=== PATIENT | male | born 1950 | race Caucasian/White ===

== ENCOUNTER → 2016-03-08 | Outpatient (CLI) | payer OTHER ==
[2016-03-08 14:18] LABS: Follicle Stimulating Hormone 7.7 mIU/mL (1.6-9.7)
== END | disposition home or self-care (01) ==
LOC: LABWHC1 13:10
PROVIDERS: ATTEND Internal Medicine Endocrinology, Diabetes & Metabolism
DX: R68.82 Decreased libido (principal); R53.83 Other fatigue
CPT/HCPCS: 36415; 83001; 83002; 84402; 84403

== ENCOUNTER → 2016-08-06 | Outpatient (CLI) | payer OTHER ==
--- NOTE | 2016-08-06 15:53 | US ---
EXAMINATION TYPE: US venous doppler duplex LE BI DATE OF EXAM: 08/06/2016 10:23 AM COMPARISON: NONE CLINICAL HISTORY: R22.41, R22.42 SWELLING MANDO LEGS. pt had back surgery in June; left leg swelling, no prev dvt SIDE PERFORMED: bilateral TECHNIQUE: The lower extremity deep venous system is examined utilizing real time linear array sonog gabi with graded compression, doppler sonography and color-flow sonography. VESSELS IMAGED: External Iliac Vein (EIV) Common Femoral Vein Deep Femoral Vein Femoral Vein Popliteal Vein Proximal Calf Veins Right Leg: neg for RLE dvt Left Leg: neg for LLE dvt IMPRESSION: 1. Bilateral lower extremities negative for deep venous thrombosis.
== END | disposition home or self-care (01) ==
LOC: RADUSWWP 10:00
PROVIDERS: ATTEND Neurological Surgery
DX: R22.43 Localized swelling, mass and lump, lower limb, bilateral (principal)
CPT/HCPCS: 93970

== ENCOUNTER → 2016-11-29 | Outpatient (CLI) | payer OTHER ==
[2016-11-29 11:12] LABS: CH 31.8; CHCM 33.6; HDW 2.49; HGB 15.5 gm/dL (13.0-17.5); MCH 32.7 pg (25.0-35.0); MCHC 34.5 g/dL (31.0-37.0); MCV 94.9 fL (80.0-100.0); RBC 4.75 m/uL (4.30-5.90); RDW 14.1 % (11.5-15.5); WBC 7.7 k/uL (3.8-10.6)
[2016-11-29 11:23] LABS: Anion Gap 10 mmol/L; Blood Urea Nitrogen 23 mg/dL (9-20); Carbon Dioxide 27 mmol/L (22-30); Chloride 103 mmol/L (98-107); Non-African American GFR(MDRD) >60 (>60 ml/min/1.73 sqM); Potassium 4.5 mmol/L (3.5-5.1); Sodium 140 mmol/L (137-145)
== END | disposition home or self-care (01) ==
LOC: LABWHC1 10:53
PROVIDERS: ATTEND Internal Medicine Cardiovascular Disease
DX: Z01.812 Encounter for preprocedural laboratory examination (principal); I47.1 Supraventricular tachycardia
CPT/HCPCS: 80051; 82565; 84520; 85027

== ENCOUNTER → 2017-01-23 | Outpatient (CLI) | payer OTHER ==
--- NOTE | 2017-01-23 12:11 | PN ---
PROGRESS NOTE DATE OF SERVICE: 01/23/2017 This 66-year-old gentleman has been followed in the sleep center for treatment of obstructive sleep apnea-hypopnea syndrome. Previously, I saw patient about 2 years ago. At that time, he was recommended to use CPAP equipment with a pressure of cm of water. On CPAP, his respiration was on control with that pressure. The patient does not use CPAP equipment at the present time, but he continued to use his oral appliances. Without oral appliances, he has loud snoring, but with oral appliances according to his he does not snore. With oral appliances, patient wakes up, up to 2 times with nocturia. By cardiac monitoring recently patient was documented with some episodes of V fib. Cardiac cath is normal. Also had some PVCs documented by cardiac evaluation. Patient had back surgery and surgery of the nose for nasal septum deviation since I saw him last time. After nasal surgery, he breathes better. On the previous sleep study, it was documented is significant amount of periodic limb movements during titration. The patient continued to have periodic limb movements during the night according to his family. He is twitching his legs. He was recommended to use dopamine agonists in the previous visit, but patient did not proceed with that. He has difficulties to initiate sleep at the beginning of the night. He watches TV in bedroom. [place] Sleepiness Scale today is 7. MEDICATIONS: Atorvastatin, omeprazole, levothyroxine, irbesartan, Xanax, aspirin, iron supplement, fish oil. PHYSICAL EXAMINATION: During physical exam, patient in no distress. VITAL SIGNS: BP 138/80, HR 80, RR 16, height 5 feet and 6 inches, weight 212, BMI 34.2, temperature 98.7, oxygen saturation on room air 93%. HEENT: PERRLA, EOMI, evaluation of oropharynx showed moderately low position of soft palate. NECK: Supple, no JVD. Thyroid is not palpable. LUNGS: Clear to percussion and to auscultation. Good air exchange. No wheezing or rhonchi. HEART: S1, S2, extra systoles. ABDOMEN: Obese. EXTREMITIES: No clubbing or cyanosis. 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 Cranial nerves 2 to 7 intact. There is no fasciculation or atrophy. noted. No focal deficits observed. IMPRESSION: 1. Obstructive sleep apnea-hypopnea syndrome. The patient continued to use oral appliances, but wakes up from sleep 2 times with nocturia. 2. Recently documented episodes of cardiac arrhythmia including ventricular fibrillation. 3. History of premature ventricular contractions. Some extrasystoles during auscultation today. 4. Hypertension. 5. Significant periodic limb movements during the last titration. The patient continued to have periodic limb movements during the night according to family. 6. History of nasal septal deviation, status post nasal surgery recently. 7. History of back problems, status post back fusion recently. 8. Hyperlipidemia. PLAN: 1. Polysomnography for re-evaluation of patient's breathing at the present time. He increased his weight on 10 pounds since previous visit and to check for periodic limb movements. 2. CPAP treatment possibly may need titration because of changes of the weight and status post new nasal surgery in case if oral appliances do not fix his breathing. 3. Losing weight. 4. Sleep hygiene with regular time in bed for 7-1/2 hours. 5. Treatment of insomnia should include stimulus control, worry time, paradoxical intention, no watching clocks, preferably not to use antihistamines because that might increase QT distance and subsequently increase risk for cardiac arrhythmia. 6. No driving if feeling any sleepiness. Thank you very much for allowing me to participate in management of your patient. Sincerely, Bill Barajas MD, PhD, FAASM Diplomat of [employer] Warm In Worker of [facility] [place] MMODL / JARRETN: [id number] /
== END | disposition home or self-care (01) ==
LOC: SLEEP 10:36
PROVIDERS: ATTEND Internal Medicine
DX: G47.33 Obstructive sleep apnea (adult) (pediatric) (principal); I10 Essential (primary) hypertension; E78.5 Hyperlipidemia, unspecified; G47.61 Periodic limb movement disorder; I49.9 Cardiac arrhythmia, unspecified; I49.01 Ventricular fibrillation; Z86.79 Personal history of other diseases of the circulatory system; Z79.899 Other long term (current) drug therapy; Z79.82 Long term (current) use of aspirin; Z98.1 Arthrodesis status; Z98.890 Other specified postprocedural states

== ENCOUNTER → 2017-05-29 | Outpatient (CLI) | payer OTHER ==
--- NOTE | 2017-05-29 17:34 | SFUN ---
SLEEP STUDY FOLLOW UP NOTE DATE OF SERVICE: 05/29/2017 66-year-old gentleman who has been followed in Sleep Center for treatment of obstructive sleep apnea-hypopnea syndrome. Recently patient had diagnostic sleep study and CPAP titration and I discussed with him results of sleep study in details. He has moderate obstructive sleep apnea-hypopnea syndrome with apnea-hypopnea index 15.8, in REM sleep, severely increased to 36.7. Subsequently patient received his CPAP unit and today he came first time with his new CPAP unit. I checked his CPAP machine. CPAP pressure is 10 cm of water. Usage is 100% of the night, but 18/30 nights more than 4 hours. Leak is in normal range 14 L/minute. Apnea- hypopnea index is only 0.8, which is perfect. Sometimes patient has problem with falling asleep. Also reviewed results of his sleep study and diagnostic sleep study showed 128.1 periodic limb movements per hour with 8.4 microarousals per hour. According to patient, sometimes he has more leg movements, sometimes less. MEDICATIONS: Atorvastatin, omeprazole, levothyroxine, Xanax, , Benadryl, aspirin, some vitamin supplements. PHYSICAL EXAM: GENERAL Patient in no distress. VITAL SIGNS BP 117/81, HR 80, RR 16, weight 211.0, temperature 97.8, oxygen saturation at room air 94%. HEENT PERRLA, EOMI, evaluation of oropharynx showed extremely low position of soft palate. NECK Supple, no JVD. Thyroid is not palpable. LUNGS Clear to percussion and to auscultation. Good air exchange. No wheezing or rhonchi. HEART Extrasystoles by auscultation with compensatory pauses. ABDOMEN Slightly obese. Soft and nontender. Bowel sounds are present. No organomegaly appreciated. EXTREMITIES No clubbing or cyanosis. 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 Cranial nerves 2 to 7 intact. There is no fasciculation or atrophy. noted. No focal deficits observed. IMPRESSION: 1. Apnea-hypopnea syndrome on full control with CPAP at 10 cm of water. The patient benefitting from treatment. 2. Obesity. 3. Extremely severe periodic limb movements. 4. Multiple PVCs during the sleep test. 5. Hypertension. 6. Nasal septum deviation. 7. Status post surgery for the back fusion recently. 8. Hyperlipidemia. PLAN: 1. Continue treatment with CPAP every night for the whole night. 2. I will consider to start the patient on dopaminergic agonist for preventing of periodic limb movements and possibly restless legs. 3. Psychological techniques for treatment to difficulties to initiate sleep should include stimulus control, paradoxical intention, worry time, no watching clock in bedroom. 4. No driving if feeling sleepiness. Thank you very much for allowing me to participate in management of your patient. Sincerely, Bill Barajas MD, PhD, FAASM Diplomat of [employer] Topographical Drafter of [facility] [place] MMODL / JARRETN: [id number] /
== END | disposition home or self-care (01) ==
LOC: SLEEP 16:03
PROVIDERS: ATTEND Internal Medicine
DX: G47.33 Obstructive sleep apnea (adult) (pediatric) (principal); E66.9 Obesity, unspecified; G47.61 Periodic limb movement disorder; I49.3 Ventricular premature depolarization; I10 Essential (primary) hypertension; J34.2 Deviated nasal septum; E78.5 Hyperlipidemia, unspecified; Z98.1 Arthrodesis status; Z79.899 Other long term (current) drug therapy; Z79.82 Long term (current) use of aspirin

== ENCOUNTER → 2017-12-04 | Outpatient (CLI) | payer MEDICARE, BC ==
--- NOTE | 2017-12-04 21:26 | SFUN ---
SLEEP CENTER FOLLOW UP NOTE DATE OF SERVICE: 12/04/2017 67-year-old gentleman has been followed in the Sleep Center for treatment of obstructive sleep apnea-hypopnea syndrome. The patient was started on treatment with CPAP at 8 months ago and at that time, he was able to use machine without problem practically every night and feels better with that. After that he developed some problems with sinus infection and he was not able to use machine for some period of time. Presently, his mask is cold and he needs to get new supplies. His [place] Sleepiness Scale today 5. Because of history of significant periodic limb movements. He was treated with pramipexole and he felt better with pramipexole. Occasionally he is taking it now. MEDICATIONS: Atorvastatin, omeprazole, levothyroxine, Xanax, Benadryl. PHYSICAL EXAM: GENERAL Patient in no distress. VITAL SIGNS BP 138/83, HR 78, RR 18, weight 203.8, temp 97.8, oxygen saturation at room air 97%. HEENT PERRLA, EOMI, evaluation of oropharynx showed moderately low position of soft palate. NECK Supple, no JVD. Thyroid is not palpable. LUNGS Clear to percussion and to auscultation. Good air exchange. No wheezing or rhonchi. HEART S1, S2 regular. No murmurs, gallops, or rubs. ABDOMEN Soft and nontender. Bowel sounds are present. No organomegaly appreciated. EXTREMITIES No clubbing or cyanosis. 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 Cranial nerves 2 to 7 intact. There is no fasciculation or atrophy. noted. No focal deficits observed. IMPRESSION: 1. Obstructive sleep apnea-hypopnea syndrome. The patient benefitting from CPAP treatment. 2. Hypertension. 3. Acid reflux. 4. Hypothyroidism. 5. Hyperlipidemia. 6. Anxiety. 7. History of allergy. 8. History of sinusitis. 9. Periodic limb movement syndrome. PLAN: 1. Prescription for all necessary CPAP supplies including mask, tube, filters 2. Patient will continue to use CPAP equipment every night for the whole night. 2. We will maintain prescription for Mirapex after he will be finished, patient has recently refilled his medication. 3. No driving if feeling sleepiness. 4. Watching weight. Thank you very much for allowing me to participate in management of your patient. Sincerely, Bill Barajas MD, PhD, FAASM Diplomat of [employer] Special Events Driver of [facility] [place] MMODL / JARRETN: [id number] /
== END | disposition home or self-care (01) ==
LOC: SLEEP 16:03
PROVIDERS: ATTEND Internal Medicine
DX: G47.33 Obstructive sleep apnea (adult) (pediatric) (principal); G47.61 Periodic limb movement disorder; I10 Essential (primary) hypertension; K21.9 Gastro-esophageal reflux disease without esophagitis; E03.9 Hypothyroidism, unspecified; E78.5 Hyperlipidemia, unspecified; F41.9 Anxiety disorder, unspecified; Z87.09 Personal history of other diseases of the respiratory system; Z91.09 Other allergy status, other than to drugs and biological substances; Z99.89 Dependence on other enabling machines and devices; Z79.899 Other long term (current) drug therapy

== ENCOUNTER → 2022-01-25 | Outpatient (CLI) | payer MEDICARE, BC ==
--- NOTE | 2022-01-25 13:56 | CT ---
EXAMINATION TYPE: CT lumbar spine wo con DATE OF EXAM: 01/25/2022 12:03 PM COMPARISON: None HISTORY: low back pain CT DLP: 1324.7 mGycm Automated exposure control for dose reduction was used. Technique: Unenhanced CT of the lumbar spine was performed. Bone and soft tissue window settings are submitted as well as coronal and sagittal reconstructions. Findings: There are postsurgical changes of wide laminectomy with interdisc and posterior metallic fusion at th e L5-S1 level. There is a grade 1 anterolisthesis of L5 and S1 partial fusion of the L5-S1 disc space . The lumbar vertebral segments are normal in height. The graft there is moderate degenerative disease at the T12/L1 level where there is moderate disc space narrowing and spondylosis. The L1-2, L2-3, L3-4 and L4-5 disc spaces are well-maintained in height.. The exam is limited for disc herniation but there is abnormal soft tissue density extending posterior ly from the L4-5 disc which possibly represents a large disc herniation resulting in significant sreekanth l stenosis. A post myelogram CT or MRI of the lumbar spine is recommended for further evaluation The facet joints from L1 through L5 are mildly degenerated. The paraspinal soft tissues are unremarkable. IMPRESSION: 1. Postsurgical changes of wide laminectomy , interdisc and posterior metallic fusion at the L5-S1 l evel. 2. Cannot exclude significant posterior disc herniation with spinal stenosis at the L4-5 level as tye cribed above. Post myelogram CT or MRI lumbar spine is recommended for further evaluation. 3. Moderate degenerative disease at the T12/L1 level.
--- NOTE | 2022-01-25 15:18 | XR ---
EXAMINATION TYPE: XR lumbar spine with bend/flex, 7 views DATE OF EXAM: 01/25/2022 Comparison: None Clinical History: 71-year-old male M48.062 Spinal stenosis Findings: Surgical changes L4-L5 posterior and interbody lumbar fusion with fixed grade 1 anterolisthesis. Ther e is facet arthropathy mid to lower lumbar spine. There is trace grade 1 anterolisthesis at L4-L5 whi ch minimally accentuates on flexion. There is grade 1 retrolisthesis at T12-L1 and trace at L1-L2 wit hout any dynamic subluxation. The L4-L5 anterolisthesis does not correct on extension. Vertebral body heights are preserved. Moderate degenerative disc disease suggested in the lower thoracic spine. Impression: 1. Status post right-sided L5-S1 posterior and interbody fusion with fixed anterolisthesis here. 2. Trace grade 1 anterolisthesis at L4-L5 minimally accentuate on flexion. No correction upon extensi on. 3. Additional fixed grade 1 retrolisthesis at T12-L1 and L1-L2. 4. Moderate degenerative disc disease lower thoracic spine.
== END | disposition home or self-care (01) ==
LOC: RADCTMAIN 11:27
PROVIDERS: ATTEND Neurological Surgery
DX: M48.062 Spinal stenosis, lumbar region with neurogenic claudication (principal); M47.816 Spondylosis without myelopathy or radiculopathy, lumbar region
CPT/HCPCS: 72114; 72131

== ENCOUNTER → 2022-01-30 | Outpatient (CLI) | payer MEDICARE, BC ==
--- NOTE | 2022-01-30 22:35 | MR ---
EXAMINATION TYPE: MR lumbar spine wo con DATE OF EXAM: 01/30/2022 COMPARISON: CT lumbar spine 5 days earlier. HISTORY: Low back pain that radiates down left leg, history of surgery. Spinal stenosis. TECHNIQUE: Multiplanar, multisequence imaging of the lumbar spine is performed without IV contrast. FINDINGS: Sagittal images of the lumbar spine show vertebral body height to remain satisfactory. Juliet fact from right-sided posterior interpedicular rods and screws L5-S1 level is redemonstrated. Artifac t from artificial disc material is redemonstrated. Stable slight grade 1 anterolisthesis L5 on S1. Mu ltilevel disc desiccation. Mild to moderate disc space narrowing and anterior spurring with heterogen eous Modic type II endplate changes involving the anterior T12-L1 level. The conus medullaris is nor mal in position and signal ending superior L1 level. Axial images at T12-L1 level show [id number] broad-based disc bulge effacing the anterior theca l sac. Patent bilateral neural foramina. Axial images at L1-L2 level appears within normal limits. Axial images at L2-L3 level show mild facet arthropathy bilaterally. Axial images at L3-L4 level appear within normal limits. Axial images at L4-L5 level shows mild to moderate broad-based disc bulge with focal mild/moderate ri ght paracentral disc protrusion effacing anterior thecal sac and background mild broad disc bulge. Th ere is mild/moderate facet arthropathy bilaterally. There is right-sided artifact. There is moderate to severe right and severe left-sided neural foraminal narrowing. Encroachment on bilateral L4 nerves especially on the left sagittal image 6 and axial image 16 is noted. Axial images at L5-S1 level shows spondylolisthesis. Spinal canal is preserved. There is severe bilat eral neural foraminal narrowing. Loss of surrounding fat plane noted bilaterally. Bilateral encroachm ent suspected. Small central simple parapelvic cysts in both kidneys are noted. IMPRESSION: Postsurgical change lumbosacral junction redemonstrated. There is [id number] bila teral neural foraminal narrowing lower lumbar levels and suspected effacement of the exiting left L4 and L5 nerves at lower lumbar levels as detailed above.
== END | disposition home or self-care (01) ==
LOC: RADMRIMAIN 16:35
PROVIDERS: ATTEND Neurological Surgery
DX: M48.062 Spinal stenosis, lumbar region with neurogenic claudication (principal)
CPT/HCPCS: 72148

== ENCOUNTER → 2024-06-07 | Outpatient (CLI) | payer MEDICARE, BC ==
[2024-06-07 19:20] LABS: ALT 158 U/L (10-49); AST 49 U/L (14-35); Alkaline Phosphatase 138 U/L (41-126)
== END | disposition home or self-care (01) ==
LOC: LABWHC1 13:50
PROVIDERS: ATTEND Nurse Practitioner Adult Health
DX: R74.8 Abnormal levels of other serum enzymes (principal)
CPT/HCPCS: 36415; 84075; 84450; 84460

== ENCOUNTER 2024-08-19 19:37 | Emergency (ER) | payer MEDICARE, BC ==
--- NOTE | 2024-08-19 20:27 | ED ---
Abdominal Pain HPI - General Stated Complaint: Weakness/Abn Labs Time Seen by Provider: 08/19/24 19:54 Source: patient, RN notes reviewed Mode of arrival: ambulatory Limitations: no limitations - History of Present Illness Initial Comments: This is a 73-year-old male with history including GERD and hypertension presenting for RUQ pain (04/05) since Friday. Patient endorses seeing an K[facility] at his PCP appointment yesterday where it was noted his LFTs were elevated and was scheduled for an ultrasound tomorrow. Patient states he still has his gallbladder. Endorses occasional EtOH use. Endorses use of ibuprofen with some relief and T3 with no relief. Denies use of any OTC or prescription medication today. Denies fever, chills, chest pain, dyspnea, N/V/D. MD Complaint: abdominal pain Onset/Timin -: days(s) Location: RUQ Radiation: none Migration to: no migration Severity scale (1-10): 2 Consistency: intermittent Treatments Prior to Arrival: NSAIDs, prescription analgesics - Related Data Home Medications Medication Instructions Recorded Confirmed Aspirin [Adult Low Dose Aspirin EC] 81 mg PO DAILY 11/29/16 12/05/16 Atorvastatin [Lipitor] 20 mg PO HS 11/29/16 12/05/16 Irbesartan 300 mg PO DAILY 11/29/16 12/05/16 Levothyroxine Sodium 88 mcg PO DAILY 11/29/16 12/05/16 Multivitamin [Men's Multi-Vitamin] 1 each PO DAILY 11/29/16 12/05/16 Regan-3 Fatty Acids/Fish Oil [Fish 1 each PO DAILY 11/29/16 12/05/16 Oil 1,000 mg Softgel] Omeprazole [PriLOSEC] 20 mg PO AC-BID 11/29/16 12/05/16 Ibuprofen [Ibuprofen Ib] 200 mg PO TID PRN 12/05/16 12/05/16 Allergies Allergy/AdvReac Type Severity Reaction Status Date / Time No Known Allergies Allergy Verified 08/19/24 20:46 Review of Systems ROS Statement: Those systems with pertinent positive or pertinent negative responses have been documented in the HPI. ROS Other: All systems not noted in ROS Statement are negative. Past Medical History Past Medical History: GERD/Reflux, Hypertension, Osteoarthritis (OA), Thyroid Disorder Additional Past Medical History / Comment(s): see Dr Gundlaplli's H&P; L foot drop & numbness r/t back surgery History of Any Multi-Drug Resistant Organisms: None Reported Past Surgical History: Back Surgery, Orthopedic Surgery, Tonsillectomy Additional Past Surgical History / Comment(s): left finger; back fusion Past Anesthesia/Blood Transfusion Reactions: No Reported Reaction Past Psychological History: No Psychological Hx Reported Past Alcohol Use History: Occasional Past Drug Use History: Marijuana Additional Drug Use History / Comment(s): socially - Past Family History Mother Family Medical History: No Reported History General Exam General appearance: alert, in no apparent distress Head exam: Present: atraumatic, normocephalic, normal inspection Eye exam: Present: normal appearance, PERRL, EOMI, scleral icterus (Mild scleral icterus). Absent: conjunctival injection, periorbital swelling ENT exam: Present: mucous membranes dry Neck exam: Present: normal inspection. Absent: tenderness, meningismus, lymphadenopathy Respiratory exam: Present: normal lung sounds bilaterally. Absent: respiratory distress, wheezes, rales, rhonchi, stridor, accessory muscle use, decreased breath sounds, prolonged expiratory Cardiovascular Exam: Present: regular rate, normal rhythm, normal heart sounds. Absent: systolic murmur, diastolic murmur, rubs, gallop, clicks GI/Abdominal exam: Present: soft, tenderness (Positive RUQ TTP without guarding. Negative Westbrook sign), diminished bowel sounds, hypoactive bowel sounds. Absent: distended, guarding, rebound, rigid Extremities exam: Present: normal inspection, full ROM, normal capillary refill. Absent: tenderness, pedal edema, joint swelling, calf tenderness Back exam: Present: normal inspection Neurological exam: Present: alert, oriented X3, CN II-XII intact Psychiatric exam: Present: normal affect, normal mood Skin exam: Present: warm, dry, intact. Absent: normal color (Mild jaundice noted), rash Course Vital Signs 08/19/24 20:42 Temperature 98.2 F Pulse Rate 74 Respiratory 18 Rate Blood Pressure 110/71 O2 Sat by Pulse 96 Oximetry Medical Decision Making - Medical Decision Making Was pt. sent in by a medical professional or institution (, PA, ANAESTHETIC TECHNICIAN, urgent care, hospital, or half-way...) When possible be specific @ -No Did you speak to anyone other than the patient for history (EMS, parent, family, police, friend...)? What history was obtained from this source @ -No Did you review nursing and triage notes (agree or disagree)? Why? @ -I reviewed and agree with nursing and triage notes Were old charts reviewed (outside hosp., previous admission, EMS record, old EKG, old radiological studies, urgent care reports/EKG's, half-way records)? Report findings @ -No old charts were reviewed Differential Diagnosis (chest pain, altered mental status, abdominal pain women, abdominal pain men, vaginal bleeding, weakness, fever, dyspnea, syncope, headache, dizziness, GI bleed, back pain, seizure, CVA, palpatations, mental health, musculoskeletal)? @ -Differential Abdominal Pain Men: Appendicitis, cholecystitis, diverticulosis, ischemic bowel, pancreatitis, hepatitis, UTI, gastroenteritis, AAA, incarcerated hernia, bowel obstruction, constipation, inflammatory bowel, hepatitis, peptic ulcer disease, splenic infarction, perforated viscus, testicular torsion, this is not meant to be an all-inclusive list EKG interpreted by me (3pts min.). @ -Not done X-rays interpreted by me (1pt min.). @ -None done CT interpreted by me (1pt min.). @ -None done U/S interpreted by me (1pt. min.). @ -Gallbladder ultrasound shows multiple gallstones within the gallbladder with no wall thickening or pericholecystic fluid. Common CBD raises concern for possible choledocholithiasis. What testing was considered but not performed or refused? (CT, X-rays, U/S, labs)? Why? @ -None What meds were considered but not given or refused? Why? @ -None Did you discuss the management of the patient with other professionals ( professionals i.e. , PA, ANAESTHETIC TECHNICIAN, lab, RT, psych nurse, clinical social worker, coat operator, teacher, command and control officer, transplant case manager)? Give summary @ -Spoke to Dr. Gatica who advised she will not be available tomorrow to address patient and advised to contact [facility]. Was smoking cessation discussed for >3mins.? @ -No Was critical care preformed (if so, how long)? @ -No Were there social determinants of health that impacted care today? How? (Homelessness, low income, unemployed, alcoholism, drug addiction, transportation, low edu. Level, literacy, decrease access to med. care, prison, rehab)? @ -No Was there de-escalation of care discussed even if they declined (Discuss DNR or withdrawal of care, Hospice)? DNR status @ -No What co-morbidities impacted this encounter? (DM, HTN, Smoking, COPD, CAD, Cancer, CVA, ARF, Chemo, Hep., AIDS, mental health diagnosis, sleep apnea, morbid obesity)? @ -None Was patient admitted / discharged? Hospital course, mention meds given and route, prescriptions, significant lab abnormalities, going to OR and other pertinent info. @ -Lab work notable for elevated LFTs including total bilirubin 7.2, conjugated 3.1, unconjugated 1.4, delta 2.7. AST 225, ALT 317, alkaline phosphatase 380 and lipase 558. UA positive for glucose with bilirubin. Gallbladder ultrasound shows multiple gallstones within the gallbladder with no wall thickening or pericholecystic fluid. Common CBD raises concern for possible choledocholithiasis. With elevated LFTs including bilirubin and dilated CBD, Dr. Gatica contacted who advised contact [facility] for GI consult. Patient provided IV normal saline and IVPB Zosyn. Patient accepted by Dr. Parmjit Carson at [facility] and transported by EMS. Discussed patient with Dr. Fried. Undiagnosed new problem with uncertain prognosis? @ -No Drug Therapy requiring intensive monitoring for toxicity (Heparin, Nitro, Insulin, Cardizem)? @ -No Were any procedures done? @ -No Diagnosis/symptom? @ -Choledocholithiasis Acute, or Chronic, or Acute on Chronic? @ -Acute Uncomplicated (without systemic symptoms) or Complicated (systemic symptoms)? @ -Complicated Side effects of treatment? @ -No Exacerbation, Progression, or Severe Exacerbation? @ -No Poses a threat to life or bodily function? How? (Chest pain, [place], [place], pneumonia, PE, COPD, DKA, ARF, appy, cholecystitis, CVA, Diverticulitis, Homicidal, Suicidal, threat to staff... and all critical care pts) @ -Choledocholithiasis - Lab Data Result diagrams: 08/19/24 21:47 08/19/24 21:47 Lab Results 08/19/24 08/19/24 08/19/24 Range/Units 21:47 21:47 21:47 WBC 6.22 (4.50-10.00) 10*3/uL RBC 4.86 (4.40-5.60) 10*6/uL Hgb 16.0 (13.0-17.0) g/dL Hct 44.4 (39.6-50.0) % MCV 91.4 (80.0-97.0) fL MCH 32.9 H (27.0-32.0) pg MCHC 36.0 (32.0-37.0) g/dL Plt Count 246 (140-440) 10*3/uL MPV 10.1 (9.5-12.2) fL Immature Gran % (Auto) 0.3 % Neutrophils % 57.3 % Lymphocytes % 21.2 % Monocytes % 14.3 % Eosinophils % 6.1 % Basophils % 0.8 % Immature Gran # 0.02 (0.00-0.04) 10*3/uL Neutrophils # 3.56 (1.80-7.70) 10*3/uL Lymphocytes # 1.32 (0.90-5.00) 10*3/uL Monocytes # 0.89 (0.20-1.00) 10*3/uL Eosinophils # 0.38 H (0.04-0.35) 10*3/uL Basophils # 0.05 (0.00-0.10) 10*3/uL Sodium 134 L (137-145) mmol/L Potassium 3.5 (3.5-5.1) mmol/L Chloride 103 (98-107) mmol/L Carbon Dioxide 21 L (22-30) mmol/L Anion Gap 10 mmol/L BUN 19 (9-20) mg/dL Creatinine 0.76 (0.66-1.25) mg/dL Est GFR (CKD-EPI)AfAm >90 (>60 ml/min/1.73 sqM) Est GFR (CKD-EPI)NonAf >90 (>60 ml/min/1.73 sqM) Glucose 86 (74-99) mg/dL Plasma Lactic Acid Eric 0.8 (0.7-2.0) mmol/L Calcium 9.1 (8.4-10.2) mg/dL Total Bilirubin 7.3 H (0.2-1.3) mg/dL Conjugated Bilirubin (0.0-0.3) mg/dL Unconjugated Bilirubin (0.0-1.1) mg/dL Delta Bilirubin (0.0-0.2) mg/dL AST 225 H (17-59) U/L ALT 317 H (4-49) U/L Alkaline Phosphatase 380 H (38-126) U/L Total Protein 6.6 (6.3-8.2) g/dL Albumin 4.0 (3.5-5.0) g/dL Amylase 46 (30-110) U/L Lipase 558 H (23-300) U/L Urine Color Urine Appearance (Clear) Urine pH (5.0-8.0) Ur Specific Stout (1.001-1.035) Urine Protein (Negative) Urine Glucose (UA) (Negative) Urine Ketones (Negative) Urine Blood (Negative) Urine Nitrite (Negative) Urine Bilirubin (Negative) Urine Urobilinogen (<2.0) mg/dL Ur Leukocyte Esterase (Negative) 08/19/24 08/19/24 Range/Units 21:47 23:30 WBC (4.50-10.00) 10*3/uL RBC (4.40-5.60) 10*6/uL Hgb (13.0-17.0) g/dL Hct (39.6-50.0) % MCV (80.0-97.0) fL MCH (27.0-32.0) pg MCHC (32.0-37.0) g/dL Plt Count (140-440) 10*3/uL MPV (9.5-12.2) fL Immature Gran % (Auto) % Neutrophils % % Lymphocytes % % Monocytes % % Eosinophils % % Basophils % % Immature Gran # (0.00-0.04) 10*3/uL Neutrophils # (1.80-7.70) 10*3/uL Lymphocytes # (0.90-5.00) 10*3/uL Monocytes # (0.20-1.00) 10*3/uL Eosinophils # (0.04-0.35) 10*3/uL Basophils # (0.00-0.10) 10*3/uL Sodium (137-145) mmol/L Potassium (3.5-5.1) mmol/L Chloride (98-107) mmol/L Carbon Dioxide (22-30) mmol/L Anion Gap mmol/L BUN (9-20) mg/dL Creatinine (0.66-1.25) mg/dL Est GFR (CKD-EPI)AfAm (>60 ml/min/1.73 sqM) Est GFR (CKD-EPI)NonAf (>60 ml/min/1.73 sqM) Glucose (74-99) mg/dL Plasma Lactic Acid Eric (0.7-2.0) mmol/L Calcium (8.4-10.2) mg/dL Total Bilirubin 7.2 H (0.2-1.3) mg/dL Conjugated Bilirubin 3.1 H (0.0-0.3) mg/dL Unconjugated Bilirubin 1.4 H (0.0-1.1) mg/dL Delta Bilirubin 2.7 H (0.0-0.2) mg/dL AST (17-59) U/L ALT (4-49) U/L Alkaline Phosphatase (38-126) U/L Total Protein (6.3-8.2) g/dL Albumin (3.5-5.0) g/dL Amylase (30-110) U/L Lipase (23-300) U/L Urine Color Yellow Urine Appearance Clear (Clear) Urine pH 6.0 (5.0-8.0) Ur Specific Stout 1.010 (1.001-1.035) Urine Protein Negative (Negative) Urine Glucose (UA) 4+ H (Negative) Urine Ketones Negative (Negative) Urine Blood Negative (Negative) Urine Nitrite Negative (Negative) Urine Bilirubin 1+ H (Negative) Urine Urobilinogen <2.0 (<2.0) mg/dL Ur Leukocyte Esterase Negative (Negative) Disposition Clinical Impression: Choledocholithiasis with obstruction, Hyperbilirubinemia Disposition: OTHER INSTITUTION NOT DEFINED Condition: Fair Is patient prescribed a controlled substance at d/c from ED?: No Referrals: Boy Flores MD [Primary Care Provider] - 1-2 days Time of Disposition: 00:09 - Out of Hospital Transfer - Req. Specs Out of Hospital Transfer - Requested Specifics: Other Emergency Center ([facility])
[2024-08-19 20:47] VITALS: BP 110/71; PULSE 74; RESP 18; TEMP 98.2
[2024-08-19 21:59] LABS: Basophils # (A) 0.05 10*3/uL (0.00-0.10); Basophils % (A) 0.8 %; Eosinophils # (A) 0.38 10*3/uL (0.04-0.35); Eosinophils % (A) 6.1 %; HCT 44.4 % (39.6-50.0); Lymphocytes # (A) 1.32 10*3/uL (0.90-5.00); Lymphocytes % (A) 21.2 %; MCH 32.9 pg (27.0-32.0); MCV 91.4 fL (80.0-97.0); Mean Platelet Volume 10.1 fL (9.5-12.2); Monocytes # (A) 0.89 10*3/uL (0.20-1.00); Monocytes % (A) 14.3 %; Neutrophils # (A) 3.56 10*3/uL (1.80-7.70); Neutrophils % (A) 57.3 %; Platelet Count 246 10*3/uL (140-440); RBC 4.86 10*6/uL (4.40-5.60); RDW 12.7 % (11.5-14.5); WBC 6.22 10*3/uL (4.50-10.00)
[2024-08-19 22:15] LABS: ALT 317 U/L (4-49); AST 225 U/L (17-59); African American GFR (CKD) >90 (>60 ml/min/1.73 sqM); Alkaline Phosphatase 380 U/L (38-126); Amylase 46 U/L (30-110); Anion Gap 10 mmol/L; Blood Urea Nitrogen 19 mg/dL (9-20); Calcium 9.1 mg/dL (8.4-10.2); Carbon Dioxide 21 mmol/L (22-30); Chloride 103 mmol/L (98-107); Glucose 86 mg/dL (74-99); Lipase 558 U/L (23-300); Non-African American GFR(CKD) >90 (>60 ml/min/1.73 sqM); Potassium 3.5 mmol/L (3.5-5.1); Sodium 134 mmol/L (137-145); Total Bilirubin 7.3 mg/dL (0.2-1.3); Total Protein 6.6 g/dL (6.3-8.2)
--- NOTE | 2024-08-19 22:32 | US ---
EXAMINATION TYPE: US gallbladder DATE OF EXAM: 08/19/2024 COMPARISON: NONE CLINICAL INDICATION: Male, 73 years old with history of RUQ pain; ruq pain. nausea. states elevated L FTS TECHNIQUE: Grayscale and color Doppler imaging of the right upper quadrant was performed. FINDINGS: EXAM MEASUREMENTS: Liver Length: 14.9 cm Gallbladder Wall: 0.3 cm CBD: 1.5 cm Right Kidney: 11.2 x 5.5 x 6.7 cm FRAME BANDER NOTES: Limited by overlying gas and patient body habitus Pancreas: Obscured by bowel gas Liver: ? increased echogenicity. limited visualization due to gas, intercostal views used Gallbladder: multiple echogenic foci seen within Evidence for sonographic Westbrook's sign: no CBD: dilated Right Kidney: wnl as best seen Pancreas is obscured by overlying bowel gas. The liver demonstrates questionable increased echogenici ty without focal lesion identified. Multiple shadowing gallstones identified with debris identified w ithin the gallbladder. No wall thickening or pericholecystic fluid. Negative sonographic Westbrook's sig n. Dilated common bile duct. The visualized portions right kidney demonstrates no hydronephrosis, sha dowing calculus or solid mass. IMPRESSION: Limited examination due to patient body habitus and overlying bowel gas. 1. Cholelithiasis without ultrasound evidence for acute cholecystitis. 2. Dilated common bile duct which raises concern for possible choledocholithiasis. Correlate with james iary labs and consider further evaluation with MRCP/ERCP. 3. Possible mild hepatic steatosis. [facility], , 08/19/2024 10:29 PM
[2024-08-19 23:38] LABS: Bilirubin, Conjugated 3.1 mg/dL (0.0-0.3); Bilirubin, Delta 2.7 mg/dL (0.0-0.2); Bilirubin,Unconjugated 1.4 mg/dL (0.0-1.1); Total Bilirubin 7.2 mg/dL (0.2-1.3)
[2024-08-19 23:44] LABS: Appearance,Urine Clear (Clear); Bilirubin,Urine 1+ (Negative); Blood,Urine Negative (Negative); Color,Urine Yellow; Glucose,Urine (UA) 4+ (Negative); Ketones,Urine Negative (Negative); Leukocyte Esterase,Urine Negative (Negative); Nitrite,Urine Negative (Negative); Protein,Urine Negative (Negative); Urobilinogen,Urine <2.0 mg/dL (<2.0)
[2024-08-20] MEDS: SODIUM CHLORIDE 0.9% 1,000 ML IV STA (01:14)
[2024-08-20] MEDS: PIPERACILLIN-TAZOBACTAM 3.375 GM in SODIUM CHLORIDE 0.9% 100 ML IVPB STA (01:14)
== END 2024-08-20 02:18 | disposition other institution (70) ==
LOC: EC 19:37
DX: K80.71 Calculus of gallbladder and bile duct without cholecystitis with obstruction (principal); E80.6 Other disorders of bilirubin metabolism
CPT/HCPCS: 36415; 80053; 82150; 82248; 83605; 83690; 85025; 81003; 76705; 99285; 96365; 96361; J2543

== ENCOUNTER 2024-09-24 07:22 | Day surgery (SDC) | payer MEDICARE, BC ==
[2024-09-24] MEDS ORDERED: fentaNYL (PF) 50 MCG/ML 2 ML AMP IVP PRN (07:33)
[2024-09-24] MEDS ORDERED: MIDAZOLAM 2 MG/2 ML VIAL IV PRN (07:33)
[2024-09-24] MEDS ORDERED: LIDOCAINE 1% (10MG/ML) FOR IV START INTRADERMA PRN (07:33)
[2024-09-24] MEDS: IV FLUID CONTINUATION 1,000 ML IV ONE (07:53)
[2024-09-24 08:09] VITALS: TEMP 97.9
[2024-09-24 08:25] LABS: Glucose,Whole Blood 92 mg/dL (70-110)
[2024-09-24] MEDS: DEXAMETHASONE SOD PHOSPHATE 4 MG/ML 1 ML VIAL IV ONE (08:27)
[2024-09-24] MEDS: ONDANSETRON 4 MG/2 ML VIAL IVP ONE (08:28)
[2024-09-24] MEDS: ACETAMINOPHEN TAB 500 MG TAB PO PRN (08:29)
[2024-09-24] MEDS: HEPARIN SODIUM,PORCINE 5,000 UNIT/ML 1 ML VIAL SQ PRN (08:30)
[2024-09-24] MEDS: LACTATED RINGERS 1,000 ML IV SCH (08:32)
[2024-09-24 08:38] LABS: Basophils # (A) 0.06 10*3/uL (0.00-0.10); Basophils % (A) 1.0 %; Eosinophils # (A) 0.50 10*3/uL (0.04-0.35); Eosinophils % (A) 8.7 %; HCT 50.4 % (39.6-50.0); HGB 17.2 g/dL (13.0-17.0); Lymphocytes # (A) 1.65 10*3/uL (0.90-5.00); Lymphocytes % (A) 28.6 %; MCH 31.3 pg (27.0-32.0); MCHC 34.1 g/dL (32.0-37.0); MCV 91.8 fL (80.0-97.0); Monocytes # (A) 0.74 10*3/uL (0.20-1.00); Monocytes % (A) 12.8 %; Neutrophils # (A) 2.80 10*3/uL (1.80-7.70); Neutrophils % (A) 48.7 %; Platelet Count 253 10*3/uL (140-440); RBC 5.49 10*6/uL (4.40-5.60); RDW 12.6 % (11.5-14.5); WBC 5.76 10*3/uL (4.50-10.00)
[2024-09-24] MEDS ORDERED: PROPOFOL 10 MG/ML 20 ML VIAL IV ONE (08:44)
[2024-09-24] MEDS ORDERED: ROCURONIUM 10 MG/ML (5 ML VIAL) IV ONE (08:44)
[2024-09-24] MEDS ORDERED: MIDAZOLAM 2 MG/2 ML VIAL ONE (08:44)
[2024-09-24] MEDS ORDERED: fentaNYL (PF) 50 MCG/ML 2 ML AMP ONE (08:44)
[2024-09-24] MEDS ORDERED: GLYCOPYRROLATE 0.2 MG/ML 2 ML VIAL ONE (08:44)
[2024-09-24] MEDS ORDERED: NEOSTIGMINE 1 MG/ML 10 ML VIAL ONE (08:44)
[2024-09-24] MEDS ORDERED: ePHEDrine 50 MG/ML 1 ML VIAL ONE (08:44)
[2024-09-24 09:03] LABS: ALT 63 U/L (4-49); African American GFR (CKD) >90 (>60 ml/min/1.73 sqM); Anion Gap 12 mmol/L; Blood Urea Nitrogen 24 mg/dL (9-20); Calcium 9.6 mg/dL (8.4-10.2); Carbon Dioxide 26 mmol/L (22-30); Chloride 101 mmol/L (98-107); Glucose 96 mg/dL (74-99); Non-African American GFR(CKD) 86 (>60 ml/min/1.73 sqM); Sodium 139 mmol/L (137-145)
[2024-09-24] MEDS: BUPIVACAINE (PF) 0.25% 30 ML VIAL SQ ONE (09:08)
[2024-09-24 09:17] LABS: AST 70 U/L (17-59); Albumin 4.8 g/dL (3.5-5.0); Alkaline Phosphatase 101 U/L (38-126); Potassium 4.8 mmol/L (3.5-5.1); Total Protein 7.6 g/dL (6.3-8.2)
[2024-09-24] MEDS: LACTATED RINGERS 1,000 ML IV ONE (10:06)
--- NOTE | 2024-09-24 10:34 | P.OP ---
Date of Procedure: 09/24/24 Procedure(s) Performed: PREOPERATIVE DIAGNOSIS: Chronic cholecystitis POSTOPERATIVE DIAGNOSIS: Same PROCEDURE: Laparoscopic cholecystectomy SURGEON: Cisco EBL: Minimal see anesthesia record ANESTHESIA: Gen. COMPLICATIONS: None OPERATIVE PROCEDURE: The patient was brought and placed on the operating room table in the supine position. The patient was placed under general anesthesia at that time. The abdomen was prepped and draped in the usual sterile fashion. A small vertical infraumbilical incision was made. The fascia was grasped with the Fabiola forceps. The fascia was retracted anteriorly. The Veress needle was advanced into the peritoneal cavity. The saline drop test was normal. Insufflation took place up to 15 mmHg. A 5 mm optical trocar was advanced and the peritoneal cavity. 2 additional 5 mm trochars were placed in the right upper quadrant under direct visualization. A 12 mm trocar was advanced into the epigastric incision site. The gallbladder was retracted superiorly and laterally. The patient had impressive subacute inflammatory changes. The gallbladder was adherent to the duodenum, mesocolon, liver with chronic scarring type adhesions. The peritoneum overlying the infundibulum was bluntly dissected. The patient's cystic duct was well visualized. The junction between the cystic duct common and hepatic duct was identified. The critical view of safety was achieved after blunt dissection. The cystic duct was then divided after placement of 3 12 mm clips on the patient's side and one on the specimen side. The cystic artery was identified and clipped as well. A small vessel was seen along the gallbladder fossa and clipped as well. The gallbladder was then removed from the liver bed using electrocautery. The gallbladder was then removed from the epigastric trocar site with an Endo Catch bag. We did need to lengthen our 12 mm trocar incision in order to remove this large gallbladder. The gallbladder fossa was irrigated with saline. There was no evidence of any bleeding or biliary drainage seen. The fascia at the 12 millimeter site was closed using a running 0 Vicryl stitch. The trochars were then removed. The skin at all 4 sites was closed using a 4-0 Monocryl stitch. Skin glue was utilized on the incision sites. At the end of this procedure the sponge and needle counts were correct. DISPOSITION: Stable to the recovery room
[2024-09-24] MEDS: HYDROmorphone 0.5 MG/0.5 ML SYRINGE IVP PRN (11:08)
[2024-09-24 12:39] VITALS: RESP 18
[2024-09-24 12:46] VITALS: BP 130/86; PULSE 66
== END 2024-09-24 13:40 | disposition home or self-care (01) ==
LOC: OR 07:22
PROVIDERS: ATTEND Surgery
DX: K81.1 Chronic cholecystitis
CPT/HCPCS: 80053; 85025; 88304